=== PATIENT | female | born 1970 | race Caucasian/White ===

== ENCOUNTER → 2020-02-04 | Outpatient (CLI) | payer BC, MEDICARE ==
[2020-02-04 13:48] VITALS: BP 115/76; PULSE 104; RESP 16; TEMP 97.9; BMI 46.7
--- NOTE | 2020-02-04 14:07 | P.HPBAR ---
Bariatric H&P - History & Physicial H&P Date: 02/04/20 History & Physicial: Visit/CC: Initial Visit Patient initial contact: Initial weight: 117.027 kg Initial weight in pounds: 258.00 Height: 5 ft 2.25 in Initial BMI: 46.7 Last weight: Current weight: 117.027 kg Current weight in pounds: 258.00 Current BMI: 46.7 [place] body weight (based on NIH guidelines): 50.462 kg Excess body weight loss: 0.0% The patient is a 49 year-old F who presents for Bariatric Assessment. 49-year-old female here today to discuss bariatric surgery. Patient states she has been dealing with her obesity for many years. She's been considering weight loss surgery for several years. Patient currently interested in sleeve gastrectomy. The patient suffers from GERD, anxiety, insomnia, sleep apnea, COPD, chronic neck pain, chronic back pain, fibromyositis, arthritis. Patient is on chronic narcotics and has a pain contract with a physician in [facility]. History of previous ulcers. Last EGD 1998. Patient smokes daily. BMI 47. Abdominal surgeries include laparoscopic cholecystectomy, umbilical hernia, hysterectomy, lower midline incision for abdominal exposure with subsequent spinal fixation. Review of Systems The patient denies any acute changes in vision or hearing, no dysphagia or odynophagia, no chest pain or shortness of breath, no dysuria or hematuria, no headache, no runny nose, no rectal bleeding or melena, no unexplained weight loss Past Medical History Past Medical History: Osteoarthritis (OA) History of Any Multi-Drug Resistant Organisms: None Reported Past Surgical History: Cholecystectomy, Hysterectomy, Orthopedic Surgery, Tubal Ligation Additional Past Surgical History / Comment(s): cervical fusion lumbar fusion x 3 right knee surgery Past Anesthesia/Blood Transfusion Reactions: Postoperative Nausea & Vomiting (PONV) Smoking Status: Current every day smoker Surgical - Exam Vital Signs Temp Pulse Resp BP 97.9 F 104 H 16 115/76 02/04/20 13:43 02/04/20 13:43 02/04/20 13:43 02/04/20 13:43 Physical exam: General: Well-developed, well-nourished HEENT: Normocephalic, sclerae nonicteric Abdomen: Nontender, nondistended, previous scars noted Extremities: No edema Neuro: Alert and oriented Bariatric Assessment & Plan (1) Morbid obesity with BMI of 45.0-49.9, adult Narrative/Plan: Clinical scenario reviewed in detail with the patient. Both surgical and nonsurgical options reviewed. Patient remains interested in sleeve gastrectomy over gastric bypass. Patient understands that 6 month supervised weight loss will be required. Also informed that tobacco use will need to be eliminated and the kidney and will be checked preoperatively. We'll proceed with upper endoscopy in the next 4-5 months. Follow-up in the clinic after that. Status: Acute Bariatric Checklist Checklist: Plan: Checklist: EGD: 1. Hiatal hernia: 2. H. Pylori: HgbA1c: Vitamin D: Smoking: Primary care physician referral: Psychiatry clearance: Cardiology clearance: Sleep study: Diet journal: VTE risk score: VTE risk level: Rehab needs at discharge:
== END | disposition home or self-care (01) ==
LOC: BARWHC3 13:20
PROVIDERS: ATTEND Surgery
DX: E66.01 Morbid (severe) obesity due to excess calories (principal); Z68.42 Body mass index [BMI] 45.0-49.9, adult
CPT/HCPCS: 99201